=== PATIENT | male | born 1985 ===

== ENCOUNTER 2016-12-19 14:51 | Emergency (ER) | payer OTHER ==
[2016-12-19 14:55] VITALS: BMI 23.4
[2016-12-19 14:56] VITALS: BP 130/85; PULSE 90; RESP 18; TEMP 98.3; O2SAT 100
[2016-12-19] MEDS ORDERED: Lidocaine 5% Patch TD STA (15:09)
[2016-12-19] MEDS ORDERED: Lidocaine 5% Patch TD ONE (15:24)
--- NOTE | 2016-12-19 15:51 | C.PDOC ---
History Of Present Illness 31 y.o male reports left sided neck pain upon awaking 3 days ago. He reports pain was initially mild and worsened over the past few days, he now feels stiffness and pain is also in upper back. He took Tylenol with minimal relief. Denies any injury, fever, headache, dizziness, extremity numbness or weakness Time Seen by Provider: 12/19/16 15:09 Chief Complaint (Nursing): Back Pain History Per: Patient History/Exam Limitations: no limitations Onset/Duration Of Symptoms: Days Current Symptoms Are (Timing): Still Present Previous Symptoms: None Recent travel outside of the [place]: No Past Medical History Reviewed: Historical Data, Nursing Documentation, Vital Signs Vital Signs: Last Vital Signs Temp 98.3 F 12/19/16 14:54 Pulse 90 12/19/16 14:54 Resp 18 12/19/16 14:54 BP 130/85 12/19/16 14:54 Pulse Ox 100 12/19/16 16:04 - Medical History PMH: No Chronic Diseases Family History: States: Unknown Family Hx - Social History Hx Alcohol Use: No Hx Substance Use: No - Immunization History Hx Tetanus Toxoid Vaccination: No Hx Influenza Vaccination: No Hx Pneumococcal Vaccination: No Review Of Systems Except As Marked, All Systems Reviewed And Found Negative. () Constitutional: Negative for: Fever, Chills Gastrointestinal: Negative for: Nausea, Vomiting Musculoskeletal: Positive for: Neck Pain Skin: Negative for: Rash Neurological: Negative for: Weakness, Numbness, Headache, Dizziness Physical Exam - Physical Exam Appears: Non-toxic, No Acute Distress Skin: Normal Color, Warm, Dry Head: Atraumatic, Normacephalic Neck: Normal ROM, No Midline Cervical Tenderness, No Step Off Deformity, Supple , Other (paracervical muscle tenderness, left side greater than right. palpable spasm on left. ) Chest: Symmetrical Cardiovascular: Rhythm Regular, No Murmur Respiratory: Normal Breath Sounds, No Rales, No Rhonchi, No Wheezing Gastrointestinal/Abdominal: Soft, No Tenderness Back: No Vertebral Tenderness Extremity: Normal ROM, Capillary Refill (< 2 sec. ) Neurological/Psych: Oriented x3, Normal Speech, Normal Cognition, Normal Motor, Normal Sensation ED Course And Treatment O2 Sat by Pulse Oximetry: 100 (RA) Pulse Ox Interpretation: Normal Medical Decision Making Medical Decision Making: Impression: 31 y.o male with neck pain. Exam shows muscular tenderness and spasm. Based on history and exam, xray not indicated. Plan: * Toradol * Valium * Lidoderm patch Progress: Upon reevaluation patient resting and reports pain is improving. Neck is now more easily supple without pain. Patient advised to continue NSAID and flexeril as needed. Disposition Counseled Patient/Family Regarding: Need For Followup, Rx Given - Disposition Referrals: Willie Ascencio MD [Medical Doctor] - Disposition: HOME/ ROUTINE Disposition Time: 15:49 Condition: STABLE Additional Instructions: Take Ibuprofen every 6-8 hours for pain Take Flexeril, muscle relaxant , every 8 hours Follow up with your primary medical doctor or clinic in 2-5 days for further evaluation. Return to the emergency department at any time if symptoms persist or worsen. 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 - Scribe Statement The provider has reviewed the documentation as recorded by the Giancarloibrocío Cunha All medical record entries made by the Anjel were at my direction and personally dictated by me. I have reviewed the chart and agree that the record accurately reflects my personal performance of the history, physical exam, medical decision making, and the department course for this patient. I have also personally directed, reviewed, and agree with the discharge instructions and disposition.
== END 2016-12-19 16:09 | disposition home or self-care (01) ==
LOC: C.ER 14:51
DX: M43.6 Torticollis (principal)
CPT/HCPCS: 96372; 99283; J1885

== ENCOUNTER 2016-12-23 12:08 | Emergency (ER) | payer OTHER ==
[2016-12-23 12:09] VITALS: BMI 23.4
[2016-12-23 12:15] VITALS: TEMP 98.2
--- NOTE | 2016-12-23 13:02 | C.PDOC ---
History Of Present Illness 31 yr old male presents to the ER with complaints of left sided neck and upper back pain for the past 1 week. Patient states he was seen in ED 3 days ago with similar symptoms and was prescribed pain medication and sent home. However, patient states the pain continues. Patient denies trauma, injury, chest pain, SOB, weakness or numbness. Time Seen by Provider: 12/23/16 12:38 Chief Complaint (Nursing): Upper Extremity Problem/Injury History Per: Patient History/Exam Limitations: no limitations Onset/Duration Of Symptoms: Days (1 week) Past Medical History Reviewed: Historical Data, Nursing Documentation, Vital Signs Vital Signs: Last Vital Signs Temp 98.2 F 12/23/16 12:12 Pulse 88 12/23/16 13:50 Resp 17 12/23/16 13:50 BP 120/72 12/23/16 13:50 Pulse Ox 97 12/23/16 18:14 Family History: States: No Known Family Hx - Social History Hx Alcohol Use: No Hx Substance Use: No - Immunization History Hx Tetanus Toxoid Vaccination: No Hx Influenza Vaccination: No Hx Pneumococcal Vaccination: No Review Of Systems Except As Marked, All Systems Reviewed And Found Negative. Cardiovascular: Negative for: Chest Pain Respiratory: Negative for: Shortness of Breath Musculoskeletal: Positive for: Neck Pain (Left sided ), Back Pain (Left upper back pain ) Neurological: Negative for: Weakness, Numbness Physical Exam - Physical Exam Appears: Well, Non-toxic, No Acute Distress Skin: Warm, Dry, No Rash Head: Atraumatic, Normacephalic Oral Mucosa: Moist Neck: Normal ROM, Paracervical Tenderness (Left sided ), Supple, Other Chest: Symmetrical, No Tenderness Cardiovascular: Rhythm Regular, No Murmur Respiratory: Normal Breath Sounds, No Rales, No Rhonchi, No Stridor, No Wheezing Back: Other ((+) Left sided parathoracic tenderness) Extremity: Normal ROM, No Swelling Neurological/Psych: Oriented x3, Normal Speech, Normal Motor ED Course And Treatment O2 Sat by Pulse Oximetry: 97 (on RA) Pulse Ox Interpretation: Normal - Other Rad X-Ray - Cervical Spine X-Ray: Viewed By Me, Read By Radiologist Interpretation: PROCEDURE: Cervical Spine Radiographs. HISTORY: Pain. COMPARISON: None available. FINDINGS: BONES: Straightening of the normal cervical lordosis may be related to muscle spasm or positioning. No acute displaced fracture identified. Superior most dens tip obscured ; visualized portions of the dens tip appears intact. DISC SPACES: Unremarkable. SOFT TISSUES: Unremarkable. No prevertebral soft tissue swelling. OTHER FINDINGS: None. IMPRESSION: Straightening of the normal cervical lordosis may be related to muscle spasm or positioning. Medical Decision Making Medical Decision Making: PLAN: * X-Ray - Cervical Spine * Naproxen PO * Prednisone PO Disposition - Disposition Referrals: Royce Shannon MD [Non-Staff] - Disposition: HOME/ ROUTINE Disposition Time: 13:41 Condition: GOOD Additional Instructions: Follow up with the medical doctor within 1-2 days without fail. Return if worsened. 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 - Scribe Statement The provider has reviewed the documentation as recorded by the Scribe Malena Hanley All medical record entries made by the Scribe were at my direction and personally dictated by me. I have reviewed the chart and agree that the record accurately reflects my personal performance of the history, physical exam, medical decision making, and the department course for this patient. I have also personally directed, reviewed, and agree with the discharge instructions and disposition.
[2016-12-23] MEDS ORDERED: Naproxen 275 mg Tab PO STA (13:03)
[2016-12-23] MEDS ORDERED: Naproxen 550 mg Tab PO ONE (13:10)
[2016-12-23 13:50] VITALS: BP 120/72; PULSE 88; RESP 17
--- NOTE | 2016-12-23 14:08 | RAD ---
PROCEDURE: Cervical Spine Radiographs. HISTORY: Pain. COMPARISON: None available. FINDINGS: BONES: Straightening of the normal cervical lordosis may be related to muscle spasm or positioning. No acute displaced fracture identified. Superior most dens tip obscured ; visualized portions of the dens tip appears intact. DISC SPACES: Unremarkable. SOFT TISSUES: Unremarkable. No prevertebral soft tissue swelling. OTHER FINDINGS: None. IMPRESSION: Straightening of the normal cervical lordosis may be related to muscle spasm or positioning.
[2016-12-23 14:36] VITALS: O2SAT 97
== END 2016-12-23 14:00 | disposition home or self-care (01) ==
LOC: C.ER 12:08
DX: M43.6 Torticollis (principal); M54.12 Radiculopathy, cervical region

== ENCOUNTER 2018-08-26 18:05 | Emergency (ER) | payer OTHER ==
[2018-08-26 18:19] VITALS: BMI 24.8
[2018-08-26 18:20] VITALS: O2SAT 98
--- NOTE | 2018-08-26 18:37 | C.PDOC ---
History Of Present Illness 32 y/o male presents to the ED complaining of left flank pain and hematuria for 2 hours. No prior hx of kidney stones. Otherwise patient denies any fevers, dysuria, nausea, vomiting, or other complaints. Time Seen by Provider: 08/26/18 18:30 Chief Complaint (Nursing): Male Genitourinary History Per: Patient History/Exam Limitations: no limitations Onset/Duration Of Symptoms: Hrs Current Symptoms Are (Timing): Still Present Quality Of Discomfort: "Pain" Associated Symptoms: Urinary Symptoms Past Medical History Reviewed: Historical Data, Nursing Documentation, Vital Signs Vital Signs: Last Vital Signs Temp 97.5 F L 08/26/18 18:19 Pulse 81 08/26/18 18:19 Resp 20 08/26/18 18:19 BP 146/95 H 08/26/18 18:19 Pulse Ox 98 08/26/18 18:19 - Medical History PMH: Denies: Kidney Stones Family History: States: Unknown Family Hx - Social History Hx Alcohol Use: No Hx Substance Use: No - Immunization History Hx Tetanus Toxoid Vaccination: No Hx Influenza Vaccination: No Hx Pneumococcal Vaccination: No Review Of Systems Constitutional: Negative for: Fever, Chills Cardiovascular: Negative for: Chest Pain Respiratory: Negative for: Shortness of Breath Gastrointestinal: Negative for: Nausea, Vomiting Genitourinary: Positive for: Hematuria. Negative for: Dysuria, Rash Musculoskeletal: Positive for: Back Pain (left flank) Neurological: Negative for: Weakness, Numbness Physical Exam - Physical Exam Appears: Non-toxic, Other (uncomfortable due to pain) Skin: Warm, Dry, No Diaphoretic, No Rash Head: Atraumatic, Normacephalic Eye(s): bilateral: Normal Inspection, PERRL, EOMI Oral Mucosa: Moist Neck: Normal ROM Chest: Symmetrical Cardiovascular: Rhythm Regular, No Murmur Respiratory: Normal Breath Sounds, No Accessory Muscle Use Gastrointestinal/Abdominal: Soft, No Tenderness, No Distention, No Guarding Back: CVA Tenderness (left-sided), No Vertebral Tenderness Extremity: Bilateral: Atraumatic, Normal Color And Temperature, Normal ROM Neurological/Psych: Oriented x3, Normal Speech Gait: Steady ED Course And Treatment - Laboratory Results Result Diagrams: 08/26/18 18:38 08/26/18 18:38 O2 Sat by Pulse Oximetry: 98 Medical Decision Making Medical Decision Making: ro kidney stone Plan: - CMP, CBC, coags, lipase - Urinalysis - IV fluids - 30 mg IV Toradol - 975 mg PO Tylenol no leukocytosis. no e/ o f uti based upon ua. afebrile susepct inflammatory discussed with urology dr salena briones agrees with outpt fu. strict return precautions advised. pt notifed to return with any fever worsening symptoms or concerns. Disposition - Disposition Referrals: Salena Briones MD [Staff Provider] - Disposition: HOME/ ROUTINE Disposition Time: 21:00 Condition: STABLE Additional Instructions: follow up with specialist. reutrn to er with any fever, worsening pain, or concern. Prescriptions: RX: Ibuprofen [Motrin Tab] 600 mg PO Q8 PRN #20 tab PRN Reason: Pain, Mild (1-3) oxyCODONE/Acetaminophen [Percocet 5/325 mg Tab] 1 ea PO Q6 PRN #10 tab PRN Reason: Pain, Severe (8-10) Tamsulosin [Flomax] 0.4 mg PO DAILY #10 cap Instructions: Kidney Stones in Adults Forms: [employer] (Bengali) - Clinical Impression Clinical Impression: Kidney stone - Scribe Statement The provider has reviewed the documentation as recorded by the Anjel Nichols Provider Attestation: All medical record entries made by the Giancarloibrocío were at my direction and personally dictated by me. I have reviewed the chart and agree that the record accurately reflects my personal performance of the history, physical exam, medical decision making, and the department course for this patient. I have also personally directed, reviewed, and agree with the discharge instructions and disposition. Decision To Admit - . Patient Diagnosis: Kidney stone
[2018-08-26] MEDS: Sodium Chloride 0.9% 1,000 ML IV ONE (18:40)
[2018-08-26] MEDS ORDERED: Sodium Chloride 0.9% 250 ML IV ONE (18:41)
[2018-08-26 18:42] LABS: BASO % 0.3 % (0.0-2.0); EOS # 0.3 K/uL (0.0-0.7); EOS % 1.5 % (0.0-4.0); HEMOGLOBIN 14.1 g/dL (12.0-18.0); LYMPH # 2.4 K/uL (1.0-4.3); LYMPH % 14.1 % (20.0-40.0); MEAN CORPUSCULAR HEMOGLOBIN 27.3 pg (27.0-31.0); MEAN CORPUSCULAR HGB CONC 32.5 g/dL (33.0-37.0); MONO # 0.7 K/uL (0.0-0.8); MONO % 4.2 % (0.0-10.0); NEUT # 13.9 K/uL (1.8-7.0); NEUT % 79.9 % (50.0-75.0); NRBC % 0.1 % (0.0-2.0); RBC 5.15 Mil/uL (4.40-5.90); RED CELL DISTRIBUTION WIDTH 13.7 % (11.5-14.5); WHITE BLOOD COUNT 17.3 K/uL (4.8-10.8)
[2018-08-26 18:50] LABS: URINE BACTERIA OCC (<OCC); URINE BILIRUBIN NEGATIVE (NEGATIVE); URINE BLOOD 3+ (NEGATIVE); URINE CLARITY Hazy (Clear); URINE COLOR Red (YELLOW); URINE GLUCOSE (UA) NORMAL (Normal); URINE LEUKOCYTE ESTERASE NEG Leu/uL (Negative); URINE PROTEIN 2+ mg/dL (NEGATIVE); URINE UROBILINOGEN NORMAL mg/dL (0.2-1.0)
[2018-08-26 18:55] LABS: ALB/GLOB RATIO 1.9 (1.0-2.1); ALBUMIN 4.8 g/dL (3.5-5.0); ALT/SGPT 33 U/L (21-72); AST/SGOT 25 U/L (17-59); BLOOD UREA NITROGEN 15 mg/dL (9-20); CALCIUM 8.8 mg/dl (8.6-10.4); GFR NON-AFRICAN AMERICAN > 60; LIPASE 67 U/L (23-300)
[2018-08-26 21:27] VITALS: TEMP 98.7
[2018-08-26 21:37] VITALS: BP 133/82; PULSE 100; RESP 20
--- NOTE | 2018-08-27 10:24 | CT ---
PROCEDURE: CT Abdomen and Pelvis without Oral or IV contrast. HISTORY: left flank pain r/o kidney stone COMPARISON: None available. TECHNIQUE: Contiguous axial images of the abdomen and pelvis. No oral or IV contrast administered. Coronal and Sagittal reformats generated and reviewed. Radiation dose: Total exam DLP = 442.41 mGy-cm. This CT exam was performed using one or more of the following dose reduction techniques: Automated exposure control, adjustment of the mA and/or kV according to patient size, and/or use of iterative reconstruction technique. FINDINGS: There is limited evaluation of the solid organs without the administration of IV contrast. LOWER THORAX: Subsegmental atelectasis, left lung base. No visible pleural effusion or pneumothorax. LIVER: Unremarkable unenhanced appearance. GALLBLADDER AND BILE DUCTS: Unremarkable unenhanced appearance. PANCREAS: Unremarkable unenhanced appearance. SPLEEN: Unremarkable unenhanced appearance. ADRENALS: Unremarkable unenhanced appearance. KIDNEYS AND URETERS: 3 mm mid left ureteral calculus with mild proximal hydroureter and hydronephrosis. Mild perinephric stranding. Additional nonobstructing bilateral renal calculi. No right-sided hydronephrosis. BLADDER: The urinary bladder appears unremarkable. REPRODUCTIVE: Unremarkable. APPENDIX: The appendix appears within normal limits of caliber. No secondary signs of acute appendicitis. BOWEL: The stomach is nondistended. Lack of oral contrast limits evaluation for bowel pathology. The bowel loops appear within normal limits of caliber without evidence of intestinal obstruction. Moderate constipation. PERITONEUM: No significant free fluid. No definite free air. LYMPH NODES: No bulky lymphadenopathy identified. VASCULATURE: No atherosclerotic calcifications of the aorta. No aortic aneurysm. BONES: No acute osseous abnormality is detected. OTHER FINDINGS: None. IMPRESSION: 3 mm mid left ureteral calculus with mild proximal hydroureter and hydronephrosis. Mild perinephric stranding. Moderate constipation. Preliminary impression was provided by [email or web address]
== END 2018-08-26 21:36 | disposition home or self-care (01) ==
LOC: C.ER 18:05
DX: N20.0 Calculus of kidney (principal)
CPT/HCPCS: 74176; 80053; 81001; 83690; 85025; 85610; 85730; 96361; 96374; 99285; J1885; J7030